=== PATIENT | female | born 1965 | race African-American/Black ===

== ENCOUNTER 2023-10-24 13:04 | Emergency (ER) | payer MEDICAID ==
[~2023-10-24] VITALS: Ht 160 cm; Wt 77.0 kg
[~2023-10-24 13:04] MED LIST: HCTZ; LISI1TAB13 PO; NORCO
[2023-10-24 13:12] VITALS: O2SAT 99
[2023-10-24 14:59] VITALS: BP 136/81; PULSE 92; RESP 16; TEMP 98.8
== END 2023-10-24 15:00 | disposition home or self-care (01) ==
LOC: ER 13:04
DX: I10 Essential (primary) hypertension (principal)
CPT/HCPCS: 99281